=== PATIENT | male | born 1950 | race Caucasian/White ===

== ENCOUNTER 2017-12-05 06:37 | Day surgery (SDC) | payer OTHER ==
[2017-12-05] MEDS ORDERED: PERCOCET 5-3251 EACH PO (10:07)
[2017-12-05] MEDS ORDERED: RECTICARE30 GM TOP (10:07)
== END 2017-12-05 15:38 | disposition home or self-care (01) ==
LOC: CIR.AMB 06:37
DX: K64.2 Third degree hemorrhoids (principal)